=== PATIENT | male | born 1950 | race Caucasian/White ===

== ENCOUNTER → 2017-02-18 | Outpatient (CLI) | payer OTHER ==
[~2017-02-18] MED LIST: MULT-506 PO
[2017-02-18 13:32] LABS: CHOLESTEROL/HDL RATIO 4.9
== END | disposition home or self-care (01) ==
LOC: C.LAB1850 11:04
PROVIDERS: ATTEND Internal Medicine
DX: E78.5 Hyperlipidemia, unspecified (principal)